=== PATIENT | male | born 1950 | race Caucasian/White ===

== ENCOUNTER 2023-01-13 07:34 | Outpatient (REF) | payer MEDICARE, OTHER, SELFPAY ==
[2023-01-13 07:47] LABS: MANUAL DIFF FLAG NO
[2023-01-13 08:00] LABS: Basophils Percent Auto 0.5 % (0-2); Eosinophils Absolute Auto 0.1 X10*3/uL (0.0-0.4); Hematocrit 35.7 % (42.0-52.0); Hemoglobin 12.3 g/dl (14.0-18.0); Imm Gran Abs Auto 0.03 X10*3/uL (0.00-0.03); Imm Gran Pct Auto 0.5 % (0.0-0.4); Lymphocytes Absolute Auto 2.4 X10*3/uL (1.2-4.9); Lymphocytes Percent Auto 36.5 % (20-40); Mean Corpuscular HGB Conc 34.5 g/dl (31.0-36.0); Mean Corpuscular Hemoglobin 30.8 pg (27.0-33.0); Mean Corpuscular Volume 89.3 fL (80.0-98.0); Mean Platelet Volume 11.1 fL (9.4-12.4); Monocytes Absolute Auto 0.5 X10*3/uL (0.1-1.2); Neutrophils Absolute Auto 3.4 x10*3/uL (2.0-8.3); Neutrophils Percent Auto 52.5 % (45-73); Platelet Count 207 X10*3/uL (160-400); Red Cell Distribution Width 11.5 % (11.0-16.0); White Blood Count 6.5 X10*3/uL (4.8-10.8)
[2023-01-13 08:06] LABS: Alanine Aminotransferase 14 U/L (0-40); Albumin Level 3.5 g/dL (3.5-5.0); Alkaline Phosphatase 41 U/L (39-117); Anion Gap 9 (12-20); Aspartate Amino Transferase 16 U/L (5-37); Bilirubin Total 0.5 mg/dL (0.0-1.0); Blood Urea Nitrogen 18 mg/dL (9-16); Carbon Dioxide 26 mmol/L (22-29); Chloride 111 mmol/L (96-108); Cholesterol 158 mg/dL (<200); Estimated Glomerular Filt Rate > 60; Glucose Fasting 84 mg/dL (60-99); HDL Cholesterol 59 mg/dL (>40); LDL Cholesterol Calculated 94 mg/dL (<100); Potassium 3.8 mmol/L (3.3-5.1); Sodium 142 mmol/L (135-145); Total Protein 5.8 g/dL (6.5-8.0); Triglycerides 29 mg/dL (<150)
[2023-01-13 08:21] LABS: Thyroid Stimulating Hormone 1.97 uIU/mL (0.32-4.0); Vitamin D 25-OH Total 54.4 ng/mL (>30)
[2023-01-15 22:14] LABS: TS Negative Control Passed; TS Panel A 0; TS Panel B 0; TS Positive Control Passed; TSpotTB Negative (Negative)
== END 2023-01-13 07:35 | disposition home or self-care (01) ==
LOC: HO.HSH2N 07:34
PROVIDERS: Visit Provider Internal Medicine Interventional Cardiology
DX: Z11.1 Encounter for screening for respiratory tuberculosis (principal); E55.9 Vitamin D deficiency, unspecified; E78.5 Hyperlipidemia, unspecified; G30.9 Alzheimer's disease, unspecified; F02.80 Dementia in other diseases classified elsewhere, unspecified severity, without behavioral disturbance, psychotic disturbance, mood disturbance, and anxiety
CPT/HCPCS: 36415; 80053; 80061; 82306; 84443; 85025; 86481

== ENCOUNTER 2023-01-25 11:33 | Outpatient (REF) | payer MEDICARE, SELFPAY ==
[2023-01-25 12:18] LABS: Influenza A PCR NEGATIVE (Negative); Influenza B PCR NEGATIVE (Negative); Resp Syncy Virus RNA Qual PCR NEGATIVE (Negative); SARS COV2 PCR INHOUSE NEGATIVE (Negative)
== END 2023-01-25 11:34 | disposition home or self-care (01) ==
LOC: HO.HSH2N 11:33
PROVIDERS: Visit Provider Internal Medicine Interventional Cardiology
DX: R19.7 Diarrhea, unspecified (principal); Z20.822 Contact with and (suspected) exposure to COVID-19
CPT/HCPCS: 0241U

== ENCOUNTER 2023-02-15 21:43 | Outpatient (REF) | payer MEDICARE, OTHER, SELFPAY | END 2023-02-15 21:44 | disposition home or self-care (01) | LOC: HO.HSH 21:43 | PROVIDERS: Visit Provider Internal Medicine Endocrinology, Diabetes & Metabolism | DX: Z13.89 Encounter for screening for other disorder (principal) | CPT/HCPCS: 87507 ==

== ENCOUNTER 2023-03-25 13:21 | Outpatient (REF) | payer MEDICARE, SELFPAY ==
[2023-03-25 14:43] LABS: Influenza A PCR NEGATIVE (Negative); Influenza B PCR NEGATIVE (Negative); Resp Syncy Virus RNA Qual PCR NEGATIVE (Negative); SARS COV2 PCR INHOUSE NEGATIVE (Negative)
== END 2023-03-25 13:22 | disposition home or self-care (01) ==
LOC: HO.HSH2N 13:21
PROVIDERS: Visit Provider Internal Medicine Interventional Cardiology
DX: Z11.52 Encounter for screening for COVID-19 (principal); Z20.822 Contact with and (suspected) exposure to COVID-19; R05.9 Cough, unspecified; R09.89 Other specified symptoms and signs involving the circulatory and respiratory systems
CPT/HCPCS: 0241U

== ENCOUNTER 2023-05-05 13:32 | Outpatient (REF) | payer MEDICARE, OTHER, SELFPAY ==
[2023-05-05 13:54] LABS: Appearance Urine Clear; Color Urine Yellow; Glucose Urine UA Negative (Negative); Leukocyte Esterase Urine Negative (Negative); Nitrite Urine Negative (Negative); PH 6.5 (5.0-9.0); Specific Gravity - Urine 1.015 (1.005-1.025); Urine Blood Negative (Negative); Urine Ketones Negative (Negative); Urine Protein Trace mg/dL (Neg-Trace)
[2023-05-05 14:06] LABS: Bacteria Urine None Seen (None Seen); RBC Urine 0-2 /HPF (0-2); Squamous Epithelial Cell Urine 0-2 /HPF (0-2); WBC Urine 0-5 /HPF (0-5)
== END 2023-05-05 13:33 | disposition home or self-care (01) ==
LOC: HO.HSH 13:32
PROVIDERS: Visit Provider Internal Medicine Interventional Cardiology
DX: R35.0 Frequency of micturition (principal)
CPT/HCPCS: 81001

== ENCOUNTER 2023-05-06 05:13 | Outpatient (REF) | payer MEDICARE, OTHER, SELFPAY ==
[2023-05-06 06:35] LABS: Anion Gap 11 (12-20); Blood Urea Nitrogen 13 mg/dL (9-16); Calcium 8.6 mg/dL (8.4-10.2); Carbon Dioxide 27 mmol/L (22-29); Chloride 107 mmol/L (96-108); Estimated Glomerular Filt Rate > 60; Glucose Fasting 90 mg/dL (60-99); Potassium 3.8 mmol/L (3.3-5.1); Sodium 141 mmol/L (135-145)
== END 2023-05-06 05:14 | disposition home or self-care (01) ==
LOC: HO.HSH2N 05:13
PROVIDERS: Visit Provider Internal Medicine Endocrinology, Diabetes & Metabolism
DX: R30.0 Dysuria (principal); R35.0 Frequency of micturition
CPT/HCPCS: 36415; 80048

== ENCOUNTER 2023-05-21 23:11 | Emergency (ER) | payer MEDICARE, OTHER, SELFPAY ==
--- NOTE | ~2023-05-21 | CT_ITS ---
EXAMINATION: CT HEAD WITHOUT CONTRAST CT CERVICAL SPINE WITHOUT CONTRAST CLINICAL INFORMATION: Fall. Pain. COMPARISON: None available. TECHNIQUE: Contiguous axial imaging was performed from the skull base to vertex without intravenous administration of contrast. Contiguous axial imaging was performed from the upper chest through the skull base without intravenous administration of contrast. Coronal and sagittal reformats were obtained at the acquisition workstation. This CT examination was performed using dose optimization techniques as appropriate, variously including the following: *Automated exposure control. *Adjustment of mA and/or kV according to patient size (this includes techniques or standardized protocols for targeted exams where dose is matched to indication/reason for exam; i.e. extremities or head). *Use of iterative reconstruction technique. DLP: 1078 mGy-cm FINDINGS: Head: There is no evidence of acute intracranial hemorrhage or edematous territorial infarction. Carrillo-white matter differentiation is preserved. Scattered and partially confluent hypoattenuation in the periventricular and deep white matter are consistent with moderate microangiopathy. There is a degree of generalized cerebral volume loss with prominence of both the ventricles and sulcal spaces. However, there appears to be mildly disproportionate prominence of the ventricles. The posterior callosal angle is decreased (78 degrees) when measured on a corrected coronal image, orthogonal to the anterior commissure-posterior commissure line. No abnormal focal mass effect or midline shift. No extra-axial fluid collections. No acute soft tissue or osseous abnormalities. Mild mucosal thickening of the paranasal sinuses. Moderate leftward nasal septal deviation. The mastoid air cells and middle ear cavities are clear. Left-sided lens extraction. Cervical Spine: Instrumented anterior fusion of C6-C7. Ankylosis of the left atlantooccipital articulation. Mild rotary subluxation of C1 on C2. Otherwise, the Atlantooccipital and atlantoaxial articulations remain well aligned. Straightening of the normal cervical lordosis. Mild degenerative anterolisthesis of C5 on C6. Otherwise, there is anatomic alignment of the vertebral bodies and posterior elements. No evidence of acute fracture or subluxation. The vertebral body heights are maintained. Moderate degenerative disc disease from C3-C6. Facet and uncovertebral joint arthropathy leads to osseous encroachment on the neural foramina from C3-C5. There is no prevertebral soft tissue swelling. Plate and screw fixation of the right clavicle. Healed fracture deformity of the left clavicle. The thyroid gland and remaining cervical soft tissues are within normal limits. The lung apices demonstrate no abnormalities. CT/CT cervical spine wo IV con IMPRESSION: 1. No evidence of acute intracranial hemorrhage or edematous territorial infarction. Moderate underlying microangiopathy. 2. There is a degree of generalized cerebral volume loss with prominence of both the ventricles and sulcal spaces. However, there appears to be mildly disproportionate prominence of the ventricles. This may be due to disproportionate central volume loss; however, correlation with symptoms of potential superimposed normal pressure hydrocephalus is recommended. 3. No evidence of acute fracture or traumatic subluxation of the cervical spine. Instrumented anterior fusion of C6-C7. Moderate multilevel degenerative spondyloarthropathy of the cervical spine.
--- NOTE | ~2023-05-21 | XR_ITS ---
EXAMINATION: XR PELVIS CLINICAL INFORMATION: Fall COMPARISON: None available. TECHNIQUE: AP view of the pelvis. FINDINGS: Bones are osteopenic. Mild osteoarthritis in the hips and SI joints. No fracture or malalignment. Degenerative spondylosis is present in the lower lumbar spine. Calcific atherosclerosis in the iliac and femoral arteries. XR/XR pelvis 1-2V IMPRESSION: 1. No acute fracture or malalignment in the pelvis. 2. Osteopenia.
--- NOTE | 2023-05-21 23:26 | ED_ITS ---
HPI - Fall General Chief Complaint: Fall Stated Complaint: Fall/RT hip pain Time Seen by Provider: 05/21/23 23:25 Source: EMS and RN notes reviewed Mode of arrival: EMS Limitations: altered mental status History of Present Illness HPI Narrative: Patient history of significant dementia was found next to his bed unwitnessed fall no signs of significant injury patient was given Seroquel 25 mg and 0.5 mg of lorazepam an hour prior to that which he takes routinely in the nighttime Related Data Allergies Allergy/AdvReac Type Severity Reaction Status Date / Time divalproex sodium Allergy Unknown Unknown Verified 05/22/23 00:11 [From Depakote] LISINOPRIL Allergy Unknown Unknown Uncoded 05/22/23 00:11 Review of Systems 2 Review of Systems: Yes Unobtainable due to mental status PMFSH Past Medical History Onset Date is defined in the Problem List Problems that require an onset date and time if occurred within 24 hrs of arrival to the ED Aortic Dissection and Rupture; Neurologic impairment; Cardiopulmonary Arrest; Endotracheal Intubation; Insertion or Replacement of Mechanical Circulatory Assist Device Medical History (Updated 05/22/23 @ 01:12 by Jeff Elizondo MD) Tubular adenoma Hearing loss Depression BPH (benign prostatic hyperplasia) Dementia Social History Social History Advance Directives: No Advance Directives Information Provided: No Physical Exam 2 Vital Signs: Vital Signs: Last Vital Signs Temp 97.6 F 05/22/23 00:11 Pulse 70 05/22/23 00:11 Resp 18 05/22/23 00:11 BP 173/93 H 05/22/23 00:11 Pulse Ox 98 05/22/23 00:11 O2 Del Method Room Air 05/22/23 00:11 BMI result Body Mass Index 22.9 Appearance: Alert. Oriented 1-2. No acute distress. Severely demented Eyes: PERRLA, No Nystagmus HEENT: Pharynx normal. Oral Mucosa moist, AT, NC Neck: Normal inspection. Neck supple. CVS: Normal heart rate and rhythm. Pulses normal. Respiratory: No respiratory distress. Equal air entry bilateral, no wheezing/rales/rhonchi Abdomen: Soft and nontender. Bowel sounds are present, Skin: Skin warm and dry. Normal skin color. Normal skin turgor. Extremities: No lower extremity edema. No calf tenderness, stable pelvis Neuro: Oriented X 3. No motor deficit. No sensory deficit.No cerebellar signs , cranial nerves II-XII intact Medical Decision Making Medical Decision Making [facility] Narrative: Patient with mechanical fall CT head and C-spine negative x-ray pelvis negative patient took Seroquel and Ativan an hour prior to fall Differential Diagnosis Differential Diagnoses: The differential diagnosis associated with the presentation includes SDH/cervical fracture/pelvic fracture Lab Data [facility] Lab Attestation statement: I reviewed the patient's lab results. 05/22/23 00:04 05/22/23 00:04 Labs: Lab Results 05/22/23 Range/Units 00:04 WBC 10.2 (4.8-10.8) X10*3/uL RBC 3.87 L (4.60-5.80) X10*6/uL Hgb 11.9 L (14.0-18.0) g/dl Hct 34.2 L (42.0-52.0) % MCV 88.4 (80.0-98.0) fL MCH 30.7 (27.0-33.0) pg MCHC 34.8 (31.0-36.0) g/dl RDW 11.4 (11.0-16.0) % Plt Count 256 (160-400) X10*3/uL MPV 9.9 (9.4-12.4) fL Immature Gran % (Auto) 0.3 (0.0-0.4) % Neut % (Auto) 70.3 (45-73) % Lymph % (Auto) 16.2 L (20-40) % [place] % (Auto) 9.3 (2-11) % Eos % (Auto) 3.5 (0-4) % Baso % (Auto) 0.4 (0-2) % Lymph # (Auto) 1.7 (1.2-4.9) X10*3/uL [place] # (Auto) 1.0 (0.1-1.2) X10*3/uL Eos # (Auto) 0.4 (0.0-0.4) X10*3/uL Baso # (Auto) 0.0 (0.0-0.2) X10*3/uL Abs Immat Gran (auto) 0.03 (0.00-0.03) X10*3/uL Absolute Neuts (auto) 7.2 (2.0-8.3) x10*3/uL Absolute Nucleated RBC 0.000 (0.0-0.012) X10*3/uL Nucleated RBC % (auto) 0.0 (0.0-0.2) /100WBC Sodium 140 (135-145) mmol/L Potassium 3.7 (3.3-5.1) mmol/L Chloride 106 (96-108) mmol/L Carbon Dioxide 25 (22-29) mmol/L Anion Gap 13 (12-20) BUN 18 H (9-16) mg/dL Creatinine 0.84 (0.5-1.4) mg/dL Estim Creat Clear Calc TNP Estimated GFR > 60 Random Glucose 97 (60-115) mg/dL Calcium 8.8 (8.4-10.2) mg/dL Total Bilirubin 0.5 (0.0-1.0) mg/dL AST 22 (5-37) U/L ALT 28 (0-40) U/L Alkaline Phosphatase 64 (39-117) U/L Total Protein 6.4 L (6.5-8.0) g/dL Albumin 3.5 (3.5-5.0) g/dL Independent Interpretation I performed an independent interpretation of an: Plain X-Ray and CT Scan Radiology Impression Discussion of test interpretation with radiology: I have reviewed the radiologist's reading. Discharge Plan Discharge Clinical Impression: Fall Patient Disposition: Xfer SNF Transfer Details: CT scan of the head and C-spine and labs are stable x-ray of pelvis negative for fracture Instructions: Fall Prevention for Older Adults (ED) Additional Instructions: Care and cautions as advised
--- NOTE | 2023-05-21 23:33 | ECG_ITS ---
Test Reason : FALL Blood Pressure : / mmHG Vent. Rate : 063 BPM Atrial Rate : 063 BPM P-R Int : 220 ms QRS Dur : 092 ms QT Int : 408 ms P-R-T Axes : 075 -29 055 degrees QTc Int : 417 ms Sinus rhythm with 1st degree A-V block Otherwise normal ECG No previous ECGs available Referred By: Jeff Elizondo Electronically Signed By:ELOINA PEARSON MD
[2023-05-22 00:08] LABS: MANUAL DIFF FLAG NO
[2023-05-22 00:09] LABS: Basophils Percent Auto 0.4 % (0-2); Eosinophils Absolute Auto 0.4 X10*3/uL (0.0-0.4); Eosinophils Percent Auto 3.5 % (0-4); Hematocrit 34.2 % (42.0-52.0); Hemoglobin 11.9 g/dl (14.0-18.0); Imm Gran Abs Auto 0.03 X10*3/uL (0.00-0.03); Imm Gran Pct Auto 0.3 % (0.0-0.4); Lymphocytes Absolute Auto 1.7 X10*3/uL (1.2-4.9); Lymphocytes Percent Auto 16.2 % (20-40); Mean Corpuscular HGB Conc 34.8 g/dl (31.0-36.0); Mean Corpuscular Hemoglobin 30.7 pg (27.0-33.0); Mean Corpuscular Volume 88.4 fL (80.0-98.0); Mean Platelet Volume 9.9 fL (9.4-12.4); Monocytes Percent Auto 9.3 % (2-11); Neutrophils Absolute Auto 7.2 x10*3/uL (2.0-8.3); Neutrophils Percent Auto 70.3 % (45-73); Platelet Count 256 X10*3/uL (160-400); Red Blood Count 3.87 X10*6/uL (4.60-5.80); Red Cell Distribution Width 11.4 % (11.0-16.0); White Blood Count 10.2 X10*3/uL (4.8-10.8)
[2023-05-22 00:11] VITALS: BP 164/80; BP 173/93; PULSE 67; PULSE 70; RESP 18; TEMP 36.4; O2SAT 98; O2SAT 99; BMI 22.9
[2023-05-22 00:22] LABS: Alanine Aminotransferase 28 U/L (0-40); Albumin Level 3.5 g/dL (3.5-5.0); Alkaline Phosphatase 64 U/L (39-117); Anion Gap 13 (12-20); Aspartate Amino Transferase 22 U/L (5-37); Bilirubin Total 0.5 mg/dL (0.0-1.0); Blood Urea Nitrogen 18 mg/dL (9-16); Calcium 8.8 mg/dL (8.4-10.2); Carbon Dioxide 25 mmol/L (22-29); Chloride 106 mmol/L (96-108); Estimated Glomerular Filt Rate > 60; Glucose Random 97 mg/dL (60-115); Potassium 3.7 mmol/L (3.3-5.1); Sodium 140 mmol/L (135-145); Total Protein 6.4 g/dL (6.5-8.0)
== END 2023-05-22 02:30 | disposition skilled nursing facility (03) ==
PROVIDERS: Emergency Provider Internal Medicine; PCP Internal Medicine Interventional Cardiology
DX: S79.911A Unspecified injury of right hip, initial encounter (principal); F03.90 Unspecified dementia, unspecified severity, without behavioral disturbance, psychotic disturbance, mood disturbance, and anxiety; R51.9 Headache, unspecified; I44.0 Atrioventricular block, first degree; M54.2 Cervicalgia; X58.XXXA Exposure to other specified factors, initial encounter; Y93.9 Activity, unspecified; Y92.9 Unspecified place or not applicable; Y99.8 Other external cause status; Z79.899 Other long term (current) drug therapy
CPT/HCPCS: 36415; 70450; 72125; 72170; 80053; 85025; 93005; 99284

== ENCOUNTER → 2023-05-21 23:33 | Outpatient (BNV) | payer MEDICARE, SELFPAY | PROVIDERS: Emergency Provider Internal Medicine; PCP Internal Medicine Interventional Cardiology; Visit Provider Internal Medicine Cardiovascular Disease | DX: I44.0 Atrioventricular block, first degree (principal) | CPT/HCPCS: 93010 ==

== ENCOUNTER 2023-06-10 16:44 | Outpatient (REF) | payer MEDICARE, OTHER, SELFPAY ==
[2023-06-10 16:57] LABS: Basophils Absolute Auto 0.1 X10*3/uL (0.0-0.2); Basophils Percent Auto 0.3 % (0-2); Eosinophils Absolute Auto 0.5 X10*3/uL (0.0-0.4); Eosinophils Percent Auto 3.2 % (0-4); Hematocrit 37.3 % (42.0-52.0); Hemoglobin 12.3 g/dl (14.0-18.0); Imm Gran Abs Auto 0.18 X10*3/uL (0.00-0.03); Imm Gran Pct Auto 1.2 % (0.0-0.4); Lymphocytes Absolute Auto 2.2 X10*3/uL (1.2-4.9); Lymphocytes Percent Auto 14.6 % (20-40); MANUAL DIFF FLAG SCAN; Mean Corpuscular Hemoglobin 29.4 pg (27.0-33.0); Mean Corpuscular Volume 89.2 fL (80.0-98.0); Mean Platelet Volume 9.9 fL (9.4-12.4); Monocytes Absolute Auto 1.7 X10*3/uL (0.1-1.2); Monocytes Percent Auto 11.1 % (2-11); Neutrophils Absolute Auto 10.4 x10*3/uL (2.0-8.3); Neutrophils Percent Auto 69.6 % (45-73); Platelet Count 626 X10*3/uL (160-400); Red Blood Count 4.18 X10*6/uL (4.60-5.80); Red Cell Distribution Width 11.2 % (11.0-16.0); SCAN SMEAR FLAG 1; White Blood Count 14.9 X10*3/uL (4.8-10.8)
[2023-06-10 16:58] LABS: Appearance Urine Clear; Color Urine Dark Yellow; Glucose Urine UA Negative (Negative); Leukocyte Esterase Urine Negative (Negative); Nitrite Urine Negative (Negative); Specific Gravity - Urine >= 1.030 (1.005-1.025); UMIC TRIGGER UACC YES; Urine Blood Trace (Negative); Urine Ketones Trace mg/dL (Negative); Urine Protein 30 (1+) mg/dL (Neg-Trace)
[2023-06-10 17:14] LABS: Alanine Aminotransferase 17 U/L (0-40); Albumin Level 3.3 g/dL (3.5-5.0); Alkaline Phosphatase 69 U/L (39-117); Anion Gap 14 (12-20); Aspartate Amino Transferase 18 U/L (5-37); Bilirubin Total 0.3 mg/dL (0.0-1.0); Blood Urea Nitrogen 25 mg/dL (9-16); Calcium 8.9 mg/dL (8.4-10.2); Carbon Dioxide 26 mmol/L (22-29); Chloride 104 mmol/L (96-108); Estimated Glomerular Filt Rate > 60; Glucose Random 112 mg/dL (60-115); Potassium 4.1 mmol/L (3.3-5.1); Sodium 140 mmol/L (135-145); Total Protein 7.2 g/dL (6.5-8.0)
[2023-06-10 17:22] LABS: Bacteria Urine None Seen (None Seen); Calcium Oxalate Crystals Urine Present; Granular Casts Urine Present; Hyaline Casts Urine 0-2 /LPF (0-2); Squamous Epithelial Cell Urine 0-2 /HPF (0-2); WBC Urine 0-5 /HPF (0-5)
[2023-06-10 17:23] LABS: SLIDE REVIEW VERIFIED
[2023-06-10 17:28] LABS: Thyroid Stimulating Hormone 1.02 uIU/mL (0.32-4.0)
== END 2023-06-10 16:45 | disposition home or self-care (01) ==
LOC: HO.HSH2N 16:44
PROVIDERS: Visit Provider Internal Medicine Interventional Cardiology
DX: R41.82 Altered mental status, unspecified (principal); G30.9 Alzheimer's disease, unspecified; F02.80 Dementia in other diseases classified elsewhere, unspecified severity, without behavioral disturbance, psychotic disturbance, mood disturbance, and anxiety; D64.9 Anemia, unspecified; R60.0 Localized edema; I10 Essential (primary) hypertension
CPT/HCPCS: 36415; 80053; 81001; 84443; 85025

== ENCOUNTER 2023-06-17 17:52 | Outpatient (REF) | payer MEDICARE, OTHER, SELFPAY ==
[2023-06-17 18:14] LABS: Anion Gap 12 (12-20); Blood Urea Nitrogen 21 mg/dL (9-16); Calcium 8.8 mg/dL (8.4-10.2); Carbon Dioxide 25 mmol/L (22-29); Chloride 107 mmol/L (96-108); Estimated Glomerular Filt Rate > 60; Glucose Random 146 mg/dL (60-115); Potassium 4.1 mmol/L (3.3-5.1); Sodium 140 mmol/L (135-145)
[2023-06-17 18:16] LABS: Basophils Percent Auto 0.2 % (0-2); Eosinophils Absolute Auto 0.2 X10*3/uL (0.0-0.4); Eosinophils Percent Auto 1.1 % (0-4); Hematocrit 34.9 % (42.0-52.0); Hemoglobin 11.5 g/dl (14.0-18.0); Imm Gran Abs Auto 0.29 X10*3/uL (0.00-0.03); Imm Gran Pct Auto 1.7 % (0.0-0.4); Lymphocytes Absolute Auto 1.7 X10*3/uL (1.2-4.9); Lymphocytes Percent Auto 10.1 % (20-40); MANUAL DIFF FLAG SCAN; Mean Corpuscular Hemoglobin 28.9 pg (27.0-33.0); Mean Corpuscular Volume 87.7 fL (80.0-98.0); Mean Platelet Volume 10.9 fL (9.4-12.4); Monocytes Absolute Auto 1.6 X10*3/uL (0.1-1.2); Monocytes Percent Auto 9.4 % (2-11); Neutrophils Absolute Auto 12.9 x10*3/uL (2.0-8.3); Neutrophils Percent Auto 77.5 % (45-73); Platelet Count 507 X10*3/uL (160-400); Red Blood Count 3.98 X10*6/uL (4.60-5.80); Red Cell Distribution Width 11.4 % (11.0-16.0); SCAN SMEAR FLAG 1; White Blood Count 16.7 X10*3/uL (4.8-10.8)
[2023-06-17 18:33] LABS: SLIDE REVIEW VERIFIED
== END 2023-06-17 17:53 | disposition home or self-care (01) ==
LOC: HO.HSH2N 17:52
PROVIDERS: Visit Provider Internal Medicine
DX: R41.82 Altered mental status, unspecified (principal)
CPT/HCPCS: 36415; 80048; 82550; 85025

== ENCOUNTER 2023-06-20 05:09 | Outpatient (REF) | payer MEDICARE, OTHER, SELFPAY ==
[2023-06-20 07:01] LABS: MANUAL DIFF FLAG NO
[2023-06-20 07:17] LABS: Basophils Percent Auto 0.2 % (0-2); Eosinophils Absolute Auto 0.4 X10*3/uL (0.0-0.4); Eosinophils Percent Auto 2.1 % (0-4); Hematocrit 33.5 % (42.0-52.0); Hemoglobin 10.9 g/dl (14.0-18.0); Imm Gran Abs Auto 0.26 X10*3/uL (0.00-0.03); Imm Gran Pct Auto 1.5 % (0.0-0.4); Lymphocytes Absolute Auto 1.5 X10*3/uL (1.2-4.9); Lymphocytes Percent Auto 8.8 % (20-40); Mean Corpuscular HGB Conc 32.5 g/dl (31.0-36.0); Mean Corpuscular Hemoglobin 28.8 pg (27.0-33.0); Mean Corpuscular Volume 88.6 fL (80.0-98.0); Monocytes Absolute Auto 1.4 X10*3/uL (0.1-1.2); Monocytes Percent Auto 8.4 % (2-11); Neutrophils Absolute Auto 13.4 x10*3/uL (2.0-8.3); Platelet Count 624 X10*3/uL (160-400); Red Blood Count 3.78 X10*6/uL (4.60-5.80); Red Cell Distribution Width 11.9 % (11.0-16.0)
[2023-06-20 07:27] LABS: Alanine Aminotransferase 25 U/L (0-40); Albumin Level 2.6 g/dL (3.5-5.0); Alkaline Phosphatase 53 U/L (39-117); Anion Gap 12 (12-20); Aspartate Amino Transferase 21 U/L (5-37); Bilirubin Total 0.4 mg/dL (0.0-1.0); Blood Urea Nitrogen 22 mg/dL (9-16); Calcium 8.2 mg/dL (8.4-10.2); Carbon Dioxide 25 mmol/L (22-29); Chloride 108 mmol/L (96-108); Estimated Glomerular Filt Rate > 60; Glucose Fasting 117 mg/dL (60-99); Iron 13 mcg/dL (45-160); Percent Iron Saturation 11 % (15-50); Potassium 3.9 mmol/L (3.3-5.1); Sodium 141 mmol/L (135-145); Total Iron Binding Capacity 122 mcg/dL (228-428); Total Protein 6.2 g/dL (6.5-8.0); Unsaturated Iron Binding 109 ug/dL
[2023-06-20 07:42] LABS: Ferritin 1421 ng/mL (20-250); Thyroid Stimulating Hormone 0.62 uIU/mL (0.32-4.0)
[2023-06-20 07:57] LABS: Folate 5.4 ng/mL (> or = 4.0); Vitamin B12 357 pg/mL (200-900)
== END 2023-06-20 05:10 | disposition home or self-care (01) ==
LOC: HO.HSH2N 05:09
PROVIDERS: Visit Provider Internal Medicine
DX: R53.83 Other fatigue (principal); D72.829 Elevated white blood cell count, unspecified; J18.9 Pneumonia, unspecified organism
CPT/HCPCS: 36415; 80053; 82607; 82728; 82746; 83540; 84443; 85025

== ENCOUNTER 2023-06-22 05:07 | Outpatient (REF) | payer MEDICARE, OTHER, SELFPAY ==
[2023-06-22 06:37] LABS: Baso%MD 0.2 %; Eos%MD 2.8 %; Hematocrit 32.9 % (42.0-52.0); Hemoglobin 10.7 g/dl (14.0-18.0); IG%MD 1.5 %; Lymph%MD 11.2 %; Mean Corpuscular HGB Conc 32.5 g/dl (31.0-36.0); Mean Corpuscular Hemoglobin 28.3 pg (27.0-33.0); Mean Platelet Volume 10.4 fL (9.4-12.4); Mono%MD 9.5 %; Neut%MD 74.8 %; Platelet Count 519 X10*3/uL (160-400); Red Blood Count 3.78 X10*6/uL (4.60-5.80); Red Cell Distribution Width 11.9 % (11.0-16.0); White Blood Count 16.2 X10*3/uL (4.8-10.8)
[2023-06-22 06:51] LABS: C Reactive Protein 15.92 mg/dL (< or = 0.50)
[2023-06-22 07:06] LABS: Appearance Urine Turbid; Color Urine Dark Yellow; Glucose Urine UA Negative (Negative); Leukocyte Esterase Urine Negative (Negative); Nitrite Urine Negative (Negative); Specific Gravity - Urine >= 1.030 (1.005-1.025); UMIC TRIGGER UA YES; Urine Blood Negative (Negative); Urine Ketones Trace mg/dL (Negative); Urine Protein 30 (1+) mg/dL (Neg-Trace)
[2023-06-22 07:16] LABS: Prostate Specific Antigen 0.78 ng/mL (<0.05-4.0)
[2023-06-22 07:19] LABS: Erythrocyte Sedimentation Rate 89 MM/HR (0-15)
[2023-06-22 07:19] LABS: Bacteria Urine None Seen (None Seen); Calcium Oxalate Crystals Urine Present; Hyaline Casts Urine 0-2 /LPF (0-2); RBC Urine 0-2 /HPF (0-2); WBC Urine 0-5 /HPF (0-5)
[2023-06-22 09:10] LABS: Band Neutrophils Percent 0 % (3-5); Eosinophils Absolute Manual 0.6 X10*3/uL (0.0-0.4); Eosinophils Percent Manual 4 % (0-4); Lymphocytes Absolute Manual 2.1 X10*3/uL (1.2-4.9); Lymphocytes Percent Manual 13 % (20-40); Monocytes Absolute Manual 1.3 X10*3/uL (0.1-1.2); Monocytes Percent Manual 8 % (2-11); Neutrophils Absolute Manual 12.2 X10*3/uL (2.0-8.3); Neutrophils Percent Manual 75 % (45-73)
[2023-06-22 09:11] LABS: Large Platelet PRESENT; Platelet Estimate INCREASED (NORMAL); Platelet Morphology Comment NOTED
[2023-06-22 09:12] LABS: Polychromasia 1+ (0-2) /OIF; RBC Morphology NOTED
[2023-06-22 09:19] LABS: D Dimer High Sensitivity 4240 NG/ML
[2023-06-22 14:40] LABS: OBS Int Ctl Valid YES; OBS1 NEGATIVE (NEGATIVE)
[2023-06-22 14:46] LABS: OBS Int Ctl Valid YES
[2023-06-22 21:05] LABS: OBS Int Ctl Valid YES; OBS1 NEGATIVE (NEGATIVE)
== END 2023-06-22 05:08 | disposition home or self-care (01) ==
LOC: HO.HSH2N 05:07
PROVIDERS: Visit Provider Internal Medicine Interventional Cardiology
DX: Z12.5 Encounter for screening for malignant neoplasm of prostate (principal); D50.9 Iron deficiency anemia, unspecified
CPT/HCPCS: 36415; 81001; 82272; 84134; 84153; 85007; 85027; 85379; 85652; 86140

== ENCOUNTER 2023-06-28 05:13 | Outpatient (REF) | payer MEDICARE, OTHER, SELFPAY ==
[2023-06-28 05:59] LABS: MANUAL DIFF FLAG NO
[2023-06-28 06:22] LABS: Rheumatoid Factor < 13.0 IU/mL (<15.0)
[2023-06-28 06:25] LABS: Anion Gap 13 (12-20); Blood Urea Nitrogen 18 mg/dL (9-16); C Reactive Protein 14.69 mg/dL (< or = 0.50); Calcium 8.2 mg/dL (8.4-10.2); Carbon Dioxide 24 mmol/L (22-29); Chloride 106 mmol/L (96-108); Estimated Glomerular Filt Rate > 60; Glucose Random 126 mg/dL (60-115); Potassium 3.8 mmol/L (3.3-5.1); Sodium 139 mmol/L (135-145)
[2023-06-28 06:30] LABS: Basophils Percent Auto 0.3 % (0-2); Eosinophils Absolute Auto 0.1 X10*3/uL (0.0-0.4); Hematocrit 32.7 % (42.0-52.0); Hemoglobin 10.5 g/dl (14.0-18.0); Imm Gran Abs Auto 0.14 X10*3/uL (0.00-0.03); Lymphocytes Absolute Auto 1.6 X10*3/uL (1.2-4.9); Lymphocytes Percent Auto 11.2 % (20-40); Mean Corpuscular HGB Conc 32.1 g/dl (31.0-36.0); Mean Corpuscular Hemoglobin 27.8 pg (27.0-33.0); Mean Corpuscular Volume 86.5 fL (80.0-98.0); Mean Platelet Volume 9.7 fL (9.4-12.4); Monocytes Absolute Auto 1.3 X10*3/uL (0.1-1.2); Monocytes Percent Auto 9.4 % (2-11); Neutrophils Absolute Auto 11.1 x10*3/uL (2.0-8.3); Neutrophils Percent Auto 77.1 % (45-73); Platelet Count 620 X10*3/uL (160-400); Red Blood Count 3.78 X10*6/uL (4.60-5.80); Red Cell Distribution Width 12.3 % (11.0-16.0); White Blood Count 14.3 X10*3/uL (4.8-10.8)
[2023-06-28 06:44] LABS: Carcinoembryonic Antigen < 1.73 ng/mL; Syphilis Screen Nonreactive (Nonreactive)
[2023-06-28 07:11] LABS: Erythrocyte Sedimentation Rate 91 MM/HR (0-15)
[2023-07-01 06:48] LABS: Lyme Blot 1.05 index
[2023-07-01 16:14] LABS: 18 KD (IgG) Band NON-REACTIVE; 23 KD (IgG) Band NON-REACTIVE; 23 KD (IgM) Band NON-REACTIVE; 28 KD (IgG) Band NON-REACTIVE; 30 KD (IgG) Band NON-REACTIVE; 39 KD (IgM) Band NON-REACTIVE; 39KD (IgG) Band NON-REACTIVE; 41 KD (IgM) Band NON-REACTIVE; 41KD (IgG) Band REACTIVE; 45 KD (IgG) Band NON-REACTIVE; 58 KD (IgG) Band REACTIVE; 66 KD (IgG) Band NON-REACTIVE; 93 KD (IgG) Band REACTIVE; Lyme Abs Screen EQUIVOCAL; Lyme IgG Blot Interp NEGATIVE (NEGATIVE); Lyme IgM Blot Interp NEGATIVE (NEGATIVE)
[2023-07-04 15:19] LABS: Neutrophil Cyto Ab Screen NEGATIVE (NEGATIVE)
[2023-07-06 13:34] LABS: Anti Nuclear Antibody Screen NEGATIVE (NEGATIVE)
== END 2023-06-28 05:14 | disposition home or self-care (01) ==
LOC: HO.HSH2N 05:13
PROVIDERS: Visit Provider Internal Medicine Interventional Cardiology
DX: R50.9 Fever, unspecified (principal); D72.829 Elevated white blood cell count, unspecified; J02.9 Acute pharyngitis, unspecified; R41.82 Altered mental status, unspecified; R79.82 Elevated C-reactive protein (CRP); R70.0 Elevated erythrocyte sedimentation rate
CPT/HCPCS: 36415; 80048; 82378; 85025; 85652; 86036; 86038; 86140; 86431; 86617; 86618; 86780; 87070

== ENCOUNTER 2023-07-05 05:07 | Outpatient (REF) | payer MEDICARE, OTHER, SELFPAY ==
[2023-07-05 05:16] LABS: MANUAL DIFF FLAG NO
[2023-07-05 06:17] LABS: Basophils Absolute Auto 0.1 X10*3/uL (0.0-0.2); Basophils Percent Auto 0.4 % (0-2); Eosinophils Absolute Auto 0.4 X10*3/uL (0.0-0.4); Hematocrit 31.8 % (42.0-52.0); Imm Gran Abs Auto 0.18 X10*3/uL (0.00-0.03); Imm Gran Pct Auto 1.3 % (0.0-0.4); Lymphocytes Absolute Auto 2.3 X10*3/uL (1.2-4.9); Lymphocytes Percent Auto 16.6 % (20-40); Mean Corpuscular HGB Conc 31.4 g/dl (31.0-36.0); Mean Corpuscular Hemoglobin 27.1 pg (27.0-33.0); Mean Corpuscular Volume 86.2 fL (80.0-98.0); Mean Platelet Volume 10.5 fL (9.4-12.4); Monocytes Absolute Auto 1.3 X10*3/uL (0.1-1.2); Monocytes Percent Auto 8.9 % (2-11); Neutrophils Absolute Auto 9.8 x10*3/uL (2.0-8.3); Neutrophils Percent Auto 69.8 % (45-73); Platelet Count 462 X10*3/uL (160-400); Red Blood Count 3.69 X10*6/uL (4.60-5.80); Red Cell Distribution Width 12.9 % (11.0-16.0)
== END 2023-07-05 05:08 | disposition home or self-care (01) ==
LOC: HO.HSH2N 05:07
PROVIDERS: Visit Provider Internal Medicine Interventional Cardiology
DX: R50.9 Fever, unspecified (principal); D72.829 Elevated white blood cell count, unspecified
CPT/HCPCS: 36415; 85025; 87040

== ENCOUNTER 2023-08-16 07:04 | Outpatient (REF) | payer MEDICARE, OTHER, SELFPAY ==
[2023-08-16 07:09] LABS: MANUAL DIFF FLAG NO
[2023-08-16 07:16] LABS: Basophils Absolute Auto 0.1 X10*3/uL (0.0-0.2); Basophils Percent Auto 0.5 % (0-2); Eosinophils Absolute Auto 0.6 X10*3/uL (0.0-0.4); Eosinophils Percent Auto 5.8 % (0-4); Hematocrit 33.8 % (42.0-52.0); Imm Gran Abs Auto 0.06 X10*3/uL (0.00-0.03); Imm Gran Pct Auto 0.6 % (0.0-0.4); Lymphocytes Absolute Auto 1.5 X10*3/uL (1.2-4.9); Lymphocytes Percent Auto 14.4 % (20-40); Mean Corpuscular HGB Conc 29.6 g/dl (31.0-36.0); Mean Corpuscular Volume 77.9 fL (80.0-98.0); Mean Platelet Volume 10.4 fL (9.4-12.4); Monocytes Absolute Auto 0.8 X10*3/uL (0.1-1.2); Monocytes Percent Auto 7.8 % (2-11); Neutrophils Absolute Auto 7.2 x10*3/uL (2.0-8.3); Neutrophils Percent Auto 70.9 % (45-73); Platelet Count 445 X10*3/uL (160-400); Red Blood Count 4.34 X10*6/uL (4.60-5.80); Red Cell Distribution Width 14.8 % (11.0-16.0); White Blood Count 10.2 X10*3/uL (4.8-10.8)
[2023-08-16 07:40] LABS: Anion Gap 12 (12-20); Blood Urea Nitrogen 16 mg/dL (9-16); C Reactive Protein 8.14 mg/dL (< or = 0.50); Calcium 8.8 mg/dL (8.4-10.2); Carbon Dioxide 24 mmol/L (22-29); Chloride 108 mmol/L (96-108); Estimated Glomerular Filt Rate > 60; Glucose Random 142 mg/dL (60-115); Potassium 3.8 mmol/L (3.3-5.1); Sodium 140 mmol/L (135-145)
[2023-08-16 08:08] LABS: Erythrocyte Sedimentation Rate 79 MM/HR (0-15)
== END 2023-08-16 07:05 | disposition home or self-care (01) ==
LOC: HO.HSH2N 07:04
PROVIDERS: Visit Provider Internal Medicine Interventional Cardiology
DX: D64.9 Anemia, unspecified (principal); D72.829 Elevated white blood cell count, unspecified; E70.0 Classical phenylketonuria
CPT/HCPCS: 36415; 80048; 85025; 85652; 86140

== ENCOUNTER 2024-02-09 06:09 | Outpatient (REF) | payer MEDICARE, OTHER, SELFPAY ==
[2024-02-09 06:11] LABS: MANUAL DIFF FLAG NO
[2024-02-09 07:16] LABS: Basophils Percent Auto 0.5 % (0-2); Eosinophils Absolute Auto 0.4 X10*3/uL (0.0-0.4); Eosinophils Percent Auto 4.8 % (0-4); Hematocrit 39.8 % (42.0-52.0); Hemoglobin 12.6 g/dl (14.0-18.0); Imm Gran Abs Auto 0.03 X10*3/uL (0.00-0.03); Imm Gran Pct Auto 0.4 % (0.0-0.4); Lymphocytes Absolute Auto 1.7 X10*3/uL (1.2-4.9); Lymphocytes Percent Auto 22.2 % (20-40); Mean Corpuscular HGB Conc 31.7 g/dl (31.0-36.0); Mean Corpuscular Hemoglobin 25.6 pg (27.0-33.0); Mean Corpuscular Volume 80.9 fL (80.0-98.0); Mean Platelet Volume 10.5 fL (9.4-12.4); Monocytes Absolute Auto 0.7 X10*3/uL (0.1-1.2); Monocytes Percent Auto 8.7 % (2-11); Neutrophils Absolute Auto 4.9 x10*3/uL (2.0-8.3); Neutrophils Percent Auto 63.4 % (45-73); Platelet Count 347 X10*3/uL (160-400); Red Blood Count 4.92 X10*6/uL (4.60-5.80); Red Cell Distribution Width 15.2 % (11.0-16.0); White Blood Count 7.7 X10*3/uL (4.8-10.8)
[2024-02-09 07:25] LABS: Alanine Aminotransferase 21 U/L (0-40); Albumin Level 3.4 g/dL (3.5-5.0); Alkaline Phosphatase 82 U/L (39-117); Anion Gap 12 (12-20); Aspartate Amino Transferase 16 U/L (5-37); Bilirubin Total 0.3 mg/dL (0.0-1.0); Blood Urea Nitrogen 24 mg/dL (9-16); Calcium 9.7 mg/dL (8.4-10.2); Carbon Dioxide 22 mmol/L (22-29); Chloride 110 mmol/L (96-108); Estimated Glomerular Filt Rate > 60; Glucose Fasting 95 mg/dL (60-99); Potassium 4.2 mmol/L (3.3-5.1); Sodium 140 mmol/L (135-145); Total Protein 7.7 g/dL (6.5-8.0)
[2024-02-09 08:28] LABS: Erythrocyte Sedimentation Rate 67 MM/HR (0-15)
== END 2024-02-09 06:10 | disposition home or self-care (01) ==
LOC: HO.HSH1N 06:09
PROVIDERS: Visit Provider Internal Medicine Interventional Cardiology
DX: D64.9 Anemia, unspecified (principal); F03.90 Unspecified dementia, unspecified severity, without behavioral disturbance, psychotic disturbance, mood disturbance, and anxiety; R70.0 Elevated erythrocyte sedimentation rate
CPT/HCPCS: 36415; 80053; 85025; 85652

== ENCOUNTER 2024-08-23 16:44 | Outpatient (REF) | payer MEDICARE, OTHER, SELFPAY ==
[2024-08-23 16:50] LABS: MANUAL DIFF FLAG NO
[2024-08-23 17:20] LABS: Basophils Absolute Auto 0.1 X10*3/uL (0.0-0.2); Basophils Percent Auto 0.4 % (0-2); Eosinophils Absolute Auto 0.1 X10*3/uL (0.0-0.4); Eosinophils Percent Auto 0.7 % (0-4); Hematocrit 40.1 % (42.0-52.0); Hemoglobin 13.4 g/dl (14.0-18.0); Imm Gran Abs Auto 0.09 X10*3/uL (0.00-0.03); Imm Gran Pct Auto 0.6 % (0.0-0.4); Lymphocytes Absolute Auto 1.1 X10*3/uL (1.2-4.9); Lymphocytes Percent Auto 7.3 % (20-40); Mean Corpuscular HGB Conc 33.4 g/dl (31.0-36.0); Mean Corpuscular Volume 86.8 fL (80.0-98.0); Mean Platelet Volume 11.3 fL (9.4-12.4); Monocytes Absolute Auto 0.8 X10*3/uL (0.1-1.2); Monocytes Percent Auto 5.4 % (2-11); Neutrophils Absolute Auto 12.8 x10*3/uL (2.0-8.3); Neutrophils Percent Auto 85.6 % (45-73); Platelet Count 257 X10*3/uL (160-400); Red Blood Count 4.62 X10*6/uL (4.60-5.80); Red Cell Distribution Width 11.6 % (11.0-16.0)
[2024-08-23 17:21] LABS: Blood Urea Nitrogen 22 mg/dL (9-16); Calcium 8.8 mg/dL (8.4-10.2); Estimated Glomerular Filt Rate > 60; Glucose Random 116 mg/dL (60-115)
[2024-08-23 17:33] LABS: Anion Gap 16 (12-20); Carbon Dioxide 20 mmol/L (22-29); Chloride 107 mmol/L (96-108); Potassium 4.4 mmol/L (3.3-5.1); Sodium 139 mmol/L (135-145)
--- OUTSIDE RECORDS SUMMARY | 2024-08-23 18:27 | XMS_ITS | Encounter Summary ---
Author Organization [employer] Address [address] [facility] 7[address] [place] [address] Care Team Providers Care Trading Manager Name Role Phone Unavailable Primary Care Provider Unavailabl e Encounter Details Date Type Department Care Team (Late st Contact Info) Description 06/02/2023 Abstract [facility] [address] [place] [address] Simon Beth, DMD [address] [place] [address] Social History Tobacco Use Types Packs/Day Years Used Date Smoking Tobacco: Unknown Sex and Gender Information Value Date Recorded Sex Assigned at Male 01/31/2023 8:59 AM EDT Legal Sex Male 8:54 AM EDT Gender Identity Male 01/31/2023 8:59 AM EDT Sexual Orientation Straight 01/31/2023 8: 59 AM EDT documented as of this encounter Plan of Treatment Not on file documented as of this encounter Visit Diagnoses Not on filedocumented in this encounter
--- OUTSIDE RECORDS SUMMARY | 2024-08-23 18:27 | XMS_ITS | Encounter Summary ---
Author Organization [employer] Address [address] [facility] 7t [place] [address] Care Team Providers Care Car Washer Name Role Phone Unavailable Primary Care Provider Unavailabl e Encounter Details Date Type Department Care Team (Late st Contact Info) Description 06/02/2023 Abstract [facility] [address] [place] [address] Simon Beth, DMD [address] [place] [address] Social History Tobacco Use Types Packs/Day Years [...]
--- OUTSIDE RECORDS SUMMARY | 2024-08-23 18:27 | XMS_ITS | Encounter Summary ---
Author Organization [employer] Address [address] [facility] 7t [place] [address] Care Team Providers Care Collar Fuser Name Role Phone Unavailable Primary Care Provider Unavailabl e Encounter Details Date Type Department Care Team (Late st Contact Info) Description 06/02/2023 Abstract [facility] [address] [place] [address] Simon Bteh, DMD [address] [place] [address] Social History Tobacco Use Types Packs/Day Years [...]
--- OUTSIDE RECORDS SUMMARY | 2024-08-23 18:27 | XMS_ITS | Clinical Summary ---
Author Organization [email or web address] Address [address] [facility] 7t [place] [address] Care Team Providers Care Ambulance Paramedic Name Role Phone Unavailable Primary Care Provider Unavailabl e Allergies Active Allergy Reactions Criticality Noted Date Comments Valproic Acid 08/31/2023 Lisinopril 02/07/2023 Medications citalopram (CeleXA) 20 MG tablet Take 20 mg by mouth in the morning. 3 Active QUEtiapine (SEROquel) 25 MG tablet TAKE 1/2 TABLET BY MOUTH EVERY MORNING AND 1 TABLET 1 HOUR BEFORE BED 3 Active donepezil (Aricept) 10 MG tablet Take 10 mg by mouth at bedtime. 3 Active fluticasone (Flonase) 50 MCG/ACT nasal spray SPRAY 1 SPRAY INTO EACH NOSTRIL TWICE A DAY 3 Active bisacodyl (Fleet Bisacodyl) 10 MG/30ML enema Insert 10 mg into the rectum 1 (one) time. Active magnesium hydroxide (Milk of Magnesia) 400 MG/5ML suspension Take 30 mL by mouth at bedtime. Active Memantine HCl ER 21 MG capsule sustained-releas e 24 hr Take 1 capsule by mouth in the morning. 2 Active mirtazapine (Remeron) 15 MG tablet Take 15 mg by mouth at bedtime. 3 Active OLANZapine (ZyPREXA) 5 MG tablet 3 Active traZODone (Desyrel) 50 MG tablet TAKE 1/2 TABLET BY MOUTH DAILY AT BEDTIME 3 Active predniSONE (Deltasone) 10 MG tablet 3 Active LORazepam (Ativan) 0.5 MG tablet Take by mouth. Active oseltamivir (Tamiflu) 6 MG/ML suspension Take by mouth. Active acetaminophen (Tylenol) 325 MG tablet Take 325 mg by mouth. Active guaiFENesin (Robitussin) 100 MG/5ML liquid Take 200 mg by mouth if needed in the morning, at noon, and at bedtime for cough. Active amLODIPine (Norvasc) 5 MG tablet Take 5 mg by mouth Once per day. Active alendronate-chol ecalciferol (Fosamax Plus D) 70-5600 MG-UNIT tablet Take 1 tablet by mouth every 7 (seven) days. Take in the morning with a full glass of water, on an empty stomach, and do not take anything else by mouth or lie down for the next 30 min. Active Nutritional Supplements (Ensure Plus High Protein) liquid Take by mouth. Active sodium phosphate (Fleet) 3.5-9.5 GM/59ML enema Insert into the rectum. Active traMADol (Ultram) 50 MG tablet Take by mouth. Active loratadine (Claritin) 10 MG tablet Take by mouth. Active sennosides (Senokot) 8.6 MG tablet Take 1 tablet by mouth Once per day. Active cholecalciferol (Vitamin D-3) 25 MCG tablet Take 25 mcg by mouth Once per day. Active Active Problems No known active problems Encounters Date Type Department Care Team Description 06/20/2024 9:00 AM EST Office Visit [facility] [address] [place] [address] [phone] Chanelle Hook from Last 3 Months Social History Tobacco Use Types Packs/Day Years Used Date Smoking Tobacco: Unknown Tobacco Cessation:Counseling Given: Not Answered Sex and Gender Information Value Date Recorded Sex Assigned at Male 01/31/2023 8:59 AM EDT Legal Sex Male 8:54 AM EDT Gender Identity Male 01/31/2023 8:59 AM EDT Sexual Orientation Straight 01/31/2023 8: 59 AM EDT Plan of Treatment Health Maintenance Due Date Last Done Comments CT Colonography 1952 Colonoscopy 1952 Colorectal Cancer Screening 1952 Depression Screening 1952 FIT DNA/Cologuard 1952 FIT 1952 FOBT 1952 Lipid Panel 1952 SDOH Screening 1952 Sigmoidoscopy 1952 Alcohol/Substance Use Screening 1964 Hepatitis C Screening 1970 Zoster Vaccines (1 of 2) 2002 Pneumococcal Vaccine: 50+ Years (3 of 3 - PCV20 or PCV21) 08/09/2022 08/09/2017, 12/13/2013 COVID-19 Vaccine (5 - season) 2024 09/08/2021, 03/12/2021, 08/05/2020, Additional history exists Influenza Vaccine (#1) 2024 , 01/07/2020, 02/28/2019, Additional history exists Dental X-Ray: Bitewings 02/09/2024 02/07/2023 Dental Oral Exam 04/14/2024 10/13/2023, 02/07/2023 Dental Prophylaxis 12/19/2024 06/20/2024, 0 11/30/2023, 08/31/2023, Additional history exists Tobacco Screening 06/20/2025 06/20/2024 DTaP/Tdap/Td Vaccines (3 - Td or Tdap) 01/06/2026 01/07/2016, 12/08/2015, 09/05/2005 Dental X-Ray: Full Mouth 02/08/2026 02/07/2023 RSV Patients and Patients Aged 60 years or older (1 - 1-dose 75+ series) 2027 HIB Vaccines Aged Out No longer eligi ble based on patient's age to complete this topic HPV Vaccines Aged Out No longer eligi ble based on patient's age to complete this topic Hepatitis A Vaccines Aged Out No long er eligible based on patient's age to complete this topic Hepatitis B Vaccines Aged Out No long er eligible based on patient's age to complete this topic IPV Vaccines Aged Out No longer eligi ble based on patient's age to complete this topic Meningococcal Vaccine Aged Out No ike mindy eligible based on patient's age to complete this topic RSV under 20 months Aged Out No longe r eligible based on patient's age to complete this topic Rotavirus Vaccines Aged Out No longer eligible based on patient's age to complete this topic Procedures Procedure Name Priority Date/Time Associated Diagnosis Comments TOPICAL APPLICATION OF FLUORIDE VARNISH Routine 06/20/2024 9:00 AM EST PROPHYLAXIS - ADULT Routine 06/20/2024 9 :00 AM EST PERIODIC ORAL EVALUATION - ESTABLISHED PATIENT Routine 10/13/2023 2:30 PM EDT INTRAORAL - COMPLETE SERIES OF RADIOGRAPHIC IMAGES Routine 02/07/2023 10:00 AM EDT from Last 3 Months or Most Recently Relevant to Health Maintenance
== END 2024-08-23 16:45 | disposition home or self-care (01) ==
LOC: HO.HSH1N 16:44
PROVIDERS: Visit Provider Internal Medicine Interventional Cardiology
DX: R55 Syncope and collapse (principal)
CPT/HCPCS: 36415; 80048; 85025

== ENCOUNTER 2024-08-24 07:57 | Outpatient (REF) | payer MEDICARE, OTHER, SELFPAY ==
[2024-08-24 08:02] LABS: MANUAL DIFF FLAG NO
--- OUTSIDE RECORDS SUMMARY | 2024-08-24 08:03 | XMS_ITS | Clinical Summary ---
Author Organization [employer] Address [address] [facility] 7t [place] [address] Care Team Providers Care Jewel Oliving Machine Operator Name Role Phone Unavailable Primary Care Provider [...] Description 06/20/2024 9:00 AM EST Office Visit [facility] D[facility] [address] [place] [address] [phone] Chanelle Hook from Last 3 Months Social [...]
--- OUTSIDE RECORDS SUMMARY | 2024-08-24 08:03 | XMS_ITS | Encounter Summary ---
Author Organization [employer] Address [address] [facility] 7t [place] [address] Care Team Providers Care Leisure Studies Professor Name Role Phone Unavailable Primary Care Provider Unavailabl e Encounter Details Date Type Department Care Team (Late st Contact Info) Description 06/02/2023 Abstract [facility] [address] [place] [address] Simon Beth, DMD [address] [place] [address] Social History Tobacco Use Types Packs/Day Years [...]
--- OUTSIDE RECORDS SUMMARY | 2024-08-24 08:03 | XMS_ITS | Encounter Summary ---
Author Organization [employer] Address [address] [facility] 7t [place] [address] Care Team Providers Care Banquet Prep Cook Name Role Phone Unavailable Primary Care Provider Unavailabl e Encounter Details Date Type Department Care Team (Late st Contact Info) Description 06/02/2023 Abstract [facility] [address] [place] [address] Simon Beth, DMD [address] [place] [address] Social History Tobacco Use Types Packs/Day Years [...]
--- OUTSIDE RECORDS SUMMARY | 2024-08-24 08:03 | XMS_ITS | Encounter Summary ---
Author Organization [employer] Address [address] [facility] [address]t [place] [address] Care Team Providers Care Section Crews Activities Clerk Name Role Phone Unavailable Primary Care Provider Unavailabl e Encounter Details Date Type Department Care Team (Late st Contact Info) Description 06/02/2023 Abstract [facility] [address] [place] [address] Simon Beth, DMD [address] [place] [address] Social History Tobacco Use Types Packs/Day Years [...]
[2024-08-24 08:11] LABS: Basophils Percent Auto 0.5 % (0-2); Eosinophils Absolute Auto 0.3 X10*3/uL (0.0-0.4); Eosinophils Percent Auto 4.1 % (0-4); Hematocrit 38.9 % (42.0-52.0); Hemoglobin 13.2 g/dl (14.0-18.0); Imm Gran Abs Auto 0.04 X10*3/uL (0.00-0.03); Imm Gran Pct Auto 0.5 % (0.0-0.4); Lymphocytes Absolute Auto 1.5 X10*3/uL (1.2-4.9); Lymphocytes Percent Auto 19.2 % (20-40); Mean Corpuscular HGB Conc 33.9 g/dl (31.0-36.0); Mean Corpuscular Hemoglobin 29.3 pg (27.0-33.0); Mean Corpuscular Volume 86.4 fL (80.0-98.0); Mean Platelet Volume 10.5 fL (9.4-12.4); Monocytes Absolute Auto 0.7 X10*3/uL (0.1-1.2); Monocytes Percent Auto 8.8 % (2-11); Neutrophils Absolute Auto 5.2 x10*3/uL (2.0-8.3); Neutrophils Percent Auto 66.9 % (45-73); Platelet Count 277 X10*3/uL (160-400); Red Cell Distribution Width 11.6 % (11.0-16.0); White Blood Count 7.8 X10*3/uL (4.8-10.8)
== END 2024-08-24 07:58 | disposition home or self-care (01) ==
LOC: HO.HSH1N 07:57
PROVIDERS: Visit Provider Internal Medicine Interventional Cardiology
DX: R55 Syncope and collapse (principal)
CPT/HCPCS: 36415; 85025

== ENCOUNTER 2025-02-26 06:26 | Outpatient (REF) | payer MEDICARE, OTHER, SELFPAY ==
[2025-02-26 06:28] LABS: MANUAL DIFF FLAG NO
--- OUTSIDE RECORDS SUMMARY | 2025-02-26 06:31 | XMS_ITS | Encounter Summary ---
Author Organization [employer] Address [address] [place] [address] [place] [address] Care Team Providers Care Elevator Installer Name Role Phone Unavailable Primary Care Provider Unavailabl e Encounter Details Date Type Department Care Team ([facility] st Contact Info) Description 06/02/2023 Abstract [facility] [address] [place] [address] Simon Beth, DMD [address] [place] [address] Social History Tobacco Use Types Packs/Day Years [...]
--- OUTSIDE RECORDS SUMMARY | 2025-02-26 06:31 | XMS_ITS | Clinical Summary ---
Author Organization [employer] Address [address] [facility] [address] [place] [address] Care Team Providers Care Aerodynamics Teacher Name Role Phone Unavailable Primary Care Provider [...] mcg by mouth Once per day. Active lactulose (Kristalose) 10 g packet Take 10 g by mouth in the morning. Active Active Problems Problem Noted Date Diagnosed Date Alzheimer disease 09/12/2024 Amblyopia 09/12/2024 Anemia 09/12/2024 Benign paroxysmal positional vertigo 09/12/2024 Benign prostatic hyperplasia without urinary obs truction 09/12/2024 Cataract 09/12/2024 Depression 09/12/2024 FHx: Alzheimer's disease 09/12/2024 Hyperlipidemia 09/12/2024 Hypertension 09/12/2024 Medicare annual wellness visit, subsequent 09/12 Encounter for general adult medical examination without abnormal findings 09/12/2024 Neck mass 09/12/2024 Nocturia 09/12/2024 REJI on CPAP 09/12/2024 Sleep apnea 09/12/2024 Overview (09/12/2024): Dec 02, 2017 Entered By: DOUG JUAN Comment: Dxed 2018 Sleep disorder 09/12/2024 Sensorineural hearing loss, bilateral 09/12/2024 Skin lesion 09/12/2024 Tubular adenoma 09/12/2024 Unspecified hearing loss, bilateral 09/12/2024 Dizziness 09/12/2024 Vertigo 09/12/2024 Vitamin D deficiency 09/12/2024 Encounters Date Type Department Care Team Description 01/30/2025 1:00 PM EDT Office Visit [facility] [address] [place] [address] Justina Smith Dental calculus (Primary Dx); Dental plaque; Gingivitis 12/26/2024 2:00 PM EDT Office Visit [facility] [address] [place] [address] iSmon Beth DMD from Last 3 Months Social History Tobacco Use Types Packs/Day Years Used Date Smoking Tobacco: Unknown Tobacco Cessation:Counseling Given: Not Answered Alcohol Use Standard Drinks/Week Comments Defer 0 (1 standard drink = 0.6 oz pur e alcohol) Sex and Gender Information Value Date Recorded [...] - PCV20 or PCV21) 08/09/2022 08/09/2017, 12/13/2013 Dental X-Ray: Bitewings 02/09/2024 02/07/2023 COVID-19 Vaccine ( season) 2025 09/08/2021, 03/12/2021, 08/05/2020, Additional history exists Influenza Vaccine (#1) 2025 , 01/07/2020, 02/28/2019, Additional history exists Dental Oral Exam 06/29/2025 12/26/2024, 11/2024, 10/13/2023, Additional history exists Dental Prophylaxis 07/31/2025 01/30/2025, 0 09/19/2024, 06/20/2024, Additional history exists DTaP/Tdap/Td Vaccines (3 - Td or Tdap) 01/06/2026 01/07/2016, 12/08/2015, 09/05/2005 Tobacco Screening 01/30/2026 01/30/2025 Dental X-Ray: Full Mouth 02/08/2026 02/07/2023 RSV Patients and Patients Aged 60 years or older Completed 03/24/2023 HIB Vaccines Aged Out No longer eligi [...] patient's age to complete this topic Meningococcal B Vaccine Aged Out No l onger eligible based on patient's age to complete [...] Comments TOPICAL APPLICATION OF FLUORIDE VARNISH Routine 01/30/2025 1:00 PM EDT PROPHYLAXIS - ADULT Routine 01/30/2025 1 :00 PM EDT Dental calculus Dental plaque Gingivitis BEHAVIOR MANAGEMENT Routine 01/30/2025 1 :00 PM EDT BEHAVIOR MANAGEMENT Routine 12/26/2024 2 :00 PM EDT PERIODIC ORAL EVALUATION - ESTABLISHED PATIENT Routine 12/26/2024 2:00 PM EDT INTRAORAL - COMPLETE SERIES OF RADIOGRAPHIC IMAGES Routine 02/07/2023 10:00 AM EDT from Last 3 Months or Most Recently Relevant to Health Maintenance
--- OUTSIDE RECORDS SUMMARY | 2025-02-26 06:31 | XMS_ITS | Encounter Summary ---
Author Organization [employer] Address [address] [place] [address] [place] [address] Care Team Providers Care Oracle Database Manager Name Role Phone Unavailable Primary Care Provider Unavailabl e Encounter Details Date Type Department Care Team ([facility] st Contact Info) Description 06/02/2023 Abstract [facility] [address] [place] [address] Simon Beth, DMD [address] [place] [address] Social History Tobacco Use Types Packs/Day Years [...]
--- OUTSIDE RECORDS SUMMARY | 2025-02-26 06:31 | XMS_ITS | Encounter Summary ---
Author Organization [employer] Address [address] [place] [address] [place] [address] Care Team Providers Care Fax Machine Repairer Name Role Phone Unavailable Primary Care Provider Unavailabl e Encounter Details Date Type Department Care Team ([facility] [place] st Contact Info) Description 06/02/2023 Abstract [facility] D[facility] [address] [place] [address] Simon Beth, DMD [address] [place] [address] Social History Tobacco Use Types Packs/Day Years [...]
[2025-02-26 06:49] LABS: Hematocrit 42.7 % (42.0-52.0); Hemoglobin 13.9 g/dl (14.0-18.0); Imm Gran Abs Auto 0.03 X10*3/uL (0.00-0.03); Imm Gran Pct Auto 0.4 % (0.0-0.4); Lymphocytes Absolute Auto 1.8 X10*3/uL (1.2-4.9); Mean Corpuscular HGB Conc 32.6 g/dl (31.0-36.0); Mean Corpuscular Hemoglobin 28.4 pg (27.0-33.0); Mean Corpuscular Volume 87.1 fL (80.0-98.0); NRBC Abs Auto 0.000 X10*3/uL (0.0-0.012); NRBC Pct Auto 0.0 /100WBC (0.0-0.2); Platelet Count 304 X10*3/uL (160-400); Red Blood Count 4.90 X10*6/uL (4.60-5.80); White Blood Count 7.5 X10*3/uL (4.8-10.8)
[2025-02-26 07:00] LABS: Alanine Aminotransferase 13 U/L (0-40); Albumin Level 3.6 g/dL (3.5-5.0); Alkaline Phosphatase 82 U/L (39-117); Anion Gap 12 (12-20); Aspartate Amino Transferase 16 U/L (5-37); Blood Urea Nitrogen 24 mg/dL (9-16); Calcium 9.1 mg/dL (8.4-10.2); Carbon Dioxide 24 mmol/L (22-29); Chloride 110 mmol/L (96-108); Estimated Glomerular Filt Rate > 60; Potassium 4.2 mmol/L (3.3-5.1); Sodium 142 mmol/L (135-145); Total Protein 7.4 g/dL (6.5-8.0)
[2025-02-26 08:14] LABS: Erythrocyte Sedimentation Rate 69 MM/HR (0-15)
== END 2025-02-26 06:27 | disposition home or self-care (01) ==
LOC: HO.HSH1N 06:26
PROVIDERS: Visit Provider Internal Medicine Interventional Cardiology
DX: Z13.89 Encounter for screening for other disorder (principal)
CPT/HCPCS: 36415; 80053; 85025; 85652